=== PATIENT | female | born 1970 | race Caucasian/White ===

== ENCOUNTER 2019-06-18 11:50 | Inpatient (IN) | payer OTHER ==
--- NOTE | 2019-06-18 13:44 | HP ---
CIWA Score Nausea/Vomitin-No Nausea/No Vomiting Muscle Tremors: 4-Moderate,w/Arms Extend Anxiety: 0-No Anxiety, at Ease Agitation: 1-Slight > Activity Paroxysmal Sweats: 1-Minimal Palms Moist Orientation: 0-Oriented Tacttile Disturbances: 2-Mild Itch/Numbness/Burn Auditory Disturbances: 0-None Visual Disturbances: 0-None Headache: 4-Moderately Severe CIWA-Ar Total Score: 12 - Admission Criteria OASAS Guidelines: Admission for Medically Managed Detox: Requires at least one of the followin. CIWA greater than 12 2. Seizures within the past 24 hours 3. Delirium tremens within the past 24 hours 4. Hallucinations within the past 24 hours 5. Acute intervention needed for co occurring medical disorder 6. Acute intervention needed for co occurring psychiatric disorder 7. Severe withdrawal that cannot be handled at a lower level of care (continued vomiting, continued diarrhea, abnormal vital signs) requiring intravenous medication and/or fluids 8. Admitting History and Physical - Admission Chief Complaint: Ms. Marin presents requesting "detox from crack and alcohol". History of Present Illness: Ms. Marin presents requesting "detox from crack and alcohol". She is a 49 yo woman with a hx of alcohol, nicotine, crack and THC use. PMH: Asthma, HTN, OA, seizure last on Dilantin in , Hep C tx with [facility] while incarcerated. Non compliant with meds PSH: c section Psych: PTSD, bipolar. Stopped meds, Buspar and Abilify while in care home Substance use history Alcohol: one pint Vodka daily, began at the age of 18, last drink yesterday at 8a. 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 No black outs or withdrawal seizure. Longest abstinence [id number]. Was in detox [facility] 6 y ago. ACI 2019. Shakes and restless with abstinence. Nicotine: 1ppd since age 18y Crack/kalen: $300. per day, started age 19 y, last use 2 hours ago THC: one blunt per day, started age 20 y Just released from care home, April 14. Was abstinent of all drugs for 9 mos while in care home. History Source: Patient Limitations to Obtaining History: No Limitations - Past Medical History Cardiovascular: Yes: HTN Pulmonary: Yes: Asthma ...LMP: 04/12/14 Musculoskeletal: Yes: Osteoarthritis - Past Surgical History Past Surgical History: Yes: - Smoking History Smoking history: Current every day smoker Have you smoked in the past 12 months: Yes Aproximately how many cigarettes per day: 3 - Alcohol/Substance Use Hx Alcohol Use: Yes History of Substance Use: reports: Cocaine, Marijuana - Social History Usual Living Arrangement: Yes: Other (family has told her she can not live there anymore) Admission ROS S - HPI Allergies/Adverse Reactions: Allergies Allergy/AdvReac Type Severity Reaction Status Date / Time amitriptyline HCl AdvReac Verified 06/18/19 14:29 [From [facility]] Exam Limitations: No Limitations - Ebola screening Have you traveled outside of the country in the last 21 days: No Have you had contact with anyone from an Ebola affected area: No Have you been sick,other than usual withdrawal symptoms: No Do you have a fever: No - Review of Systems Constitutional: No Symptoms Reported EENT: reports: No Symptoms Reported Respiratory: reports: No Symptoms reported Cardiac: reports: No Symptoms Reported GI: reports: No Symptoms Reported : reports: No Symptoms Reported Musculoskeletal: reports: Joint Pain Integumentary: reports: No Symptoms Reported Neuro: reports: No Symptoms reported Endocrine: reports: No Symptoms Reported Hematology: reports: No Symptoms Reported Psychiatric: reports: Depressed Patient History - Patient Medical History Hx Anemia: No Hx Asthma: Yes Hx Chronic Obstructive Pulmonary Disease (COPD): No Hx Cancer: No Hx Cardiac Disorders: No Hx Congestive Heart Failure: No Hx Hypertension: No Hx Hypercholesterolemia: No Hx Pacemaker: No HX Cerebrovascular Accident: No Hx Seizures: Yes (1996 ALCOHOL RELATED) Hx Dementia: No Hx Diabetes: No Hx Gastrointestinal Disorders: No Hx Liver Disease: Yes Hx Genitourinary Disorders: No Hx Sexually Transmitted Disorders: No Hx Renal Disease (ESRD): No Hx Thyroid Disease: No Hx Human Immunodeficiency Virus (HIV): No Hx Hepatitis C: Yes (s/p Harvoni 2018) Hx Depression: No Hx Suicide Attempt: Yes ([facility]DRY LT. NUBIA 2008) Hx Bipolar Disorder: Yes (AND SCHIZOAFFECTIVE DISORDER ON ABILIFY AND CELEXA) Hx Schizophrenia: Yes - Patient Surgical History Past Surgical History: Yes Hx Neurologic Surgery: No Hx Cataract Extraction: No Hx Cardiac Surgery: No Hx Lung Surgery: No Hx Breast Surgery: No Hx Breast Biopsy: No Hx Abdominal Surgery: No Hx Appendectomy: No Hx Cholecystectomy: No Hx Genitourinary Surgery: No Hx Section: Yes (X2) Hx Orthopedic Surgery: No Anesthesia Reaction: No - PPD History Documented Results: Positive w/o proof Implanted On Prior R Admission?: No PPD to be Administered?: No - Reproductive History Last Menstrual Period: 08/11/17 Patient : No - Smoking Cessation Smoking history: Current every day smoker Have you smoked in the past 12 months: Yes Aproximately how many cigarettes per day: 20 Hx Chewing Tobacco Use: No Initiated information on smoking cessation: Yes 'Breaking Loose' booklet given: 06/18/19 - Substances abused Alcohol Substance route: Oral Frequency: Daily Amount used: 2 pints Vodka Age of first use: 18 Date of last use: 06/17/19 Crack Substance route: Smoking Amount used: $300 daily Age of first use: 19 Date of last use: 06/18/19 Marijuana/Hashish Substance route: Smoking Frequency: 1-2 times per week Amount used: one blunt Age of first use: 19 Date of last use: 06/14/19 Admission Physical Exam [facility] - Physical General Appearance: Yes: No Apparent Distress, Nourished, Obese HEENTM: Yes: Within Normal Limits Respiratory: Yes: Within Normal Limits Neck: Yes: Within Normal Limits Breast: Yes: Breast Exam Deferred Cardiology: Yes: Regular Rate, S1, S2 Abdominal: Yes: Normal Bowel Sounds, Non Tender Genitourinary: Yes: Other (deferred) Back: Yes: Normal Inspection Musculoskeletal: Yes: Other (joint pain knees, ankles) Neurological: Yes: Fully Oriented, Alert, Normal Response Integumentary: Yes: Within Normal Limits - Diagnostic (1) Alcohol dependence Current Visit: Yes Status: Acute (2) Tetrahydrocannabinol (THC) dependence Current Visit: Yes Status: Acute (3) Cocaine dependence Current Visit: Yes Status: Acute (4) Depression Current Visit: Yes Status: Acute Cleared for Admission [facility] - Detox or Rehab [facility] Level of Care: Medically Managed Breathalyzer - Breathalyzer Breathalyzer: 0 Urine Drug Screen - Results Urine drug screen results: KALEN-Cocaine, BZO-Benzodiazepines Inpatient Rehab Admission - Rehab Decision to Admit Inpatient rehab admission?: No
[2019-06-18] MEDS ORDERED: MAG HYDROX/AL HYDROX/SIMETH 30 ML UNIT-DOSE CUP PO PRN (13:57)
[2019-06-18] MEDS ORDERED: MAGNESIUM CITRATE 300 ML BOTTLE PO PRN (13:57)
[2019-06-18] MEDS ORDERED: hydrOXYzine PAMOATE 25 MG CAPSULE (FP) PO PRN (13:57)
[2019-06-18] MEDS ORDERED: IBUPROFEN 400 MG TABLET (FP) PO PRN (13:57)
[2019-06-18] MEDS ORDERED: BISMUTH SUBSALICYLATE 262 MG/15 ML BTL PO PRN (13:57)
[2019-06-18] MEDS ORDERED: chlordiazePOXIDE HCL 25 MG CAPSULE PO PRN (13:57)
[2019-06-18] MEDS ORDERED: ACETAMINOPHEN 325 MG TABLET (FP) PO PRN ×2 (13:57)
[2019-06-18] MEDS ORDERED: MAGNESIUM HYDROX 2400MG/30ML ORAL SUSPENSION 30 ML CUP PO PRN (13:57)
[2019-06-18] MEDS ORDERED: MENTHOL/PHENOL 1 EACH UD MM PRN (13:57)
[2019-06-18] MEDS ORDERED: ALBUTEROL SO4 HFA INHALER IH PRN (14:02)
[2019-06-18 14:34] VITALS: BMI 43.7
[2019-06-18 17:08] LABS: HEMATOCRIT 35.5 % (32.4-45.2); HEMOGLOBIN 11.4 GM/dL (10.7-15.3); MCH 26.5 pg (25.7-33.7); MCHC 32.2 g/dl (32.0-36.0); MEAN CELL VOLUME 82.4 fl (80-96); MEAN PLT VOLUME 9.3 fl (7.5-11.1); PLATELET COUNT 291 K/MM3 (134-434); RBC 4.31 M/mm3 (3.60-5.2); RDW 16.1 % (11.6-15.6); WHITE BLOOD COUNT 6.8 K/mm3 (4.0-10.0)
[2019-06-18 17:21] LABS: ALBUMIN 3.7 g/dl (3.4-5.0); BILIRUBIN,TOTAL 0.1 mg/dL (0.2-1); BLOOD UREA NITROGEN 20.4 mg/dL (7-18); CALCIUM 9.3 mg/dL (8.5-10.1); CREATININE 0.9 mg/dL (0.55-1.3); POTASSIUM 4.2 mmol/L (3.5-5.1); TOT PROT 7.9 g/dl (6.4-8.2)
[2019-06-18] MEDS: METHOCARBAMOL 500 MG TABLET PO PRN (17:47)
[2019-06-18] MEDS: chlordiazePOXIDE HCL 25 MG CAPSULE PO SCH ×2 (17:51→22:26)
[2019-06-18] MEDS: MELATONIN 5 MG TABLETS PO PRN (22:26)
[2019-06-18] MEDS: THIAMINE HCL 100 MG TABLET (FP) PO SCH (22:26)
[2019-06-19] MEDS: chlordiazePOXIDE HCL 25 MG CAPSULE PO SCH ×4 (05:47→22:40)
[2019-06-19] MEDS: METHOCARBAMOL 500 MG TABLET PO PRN (05:48)
[2019-06-19] MEDS: PRENATAL VITAMINS W/ FOLIC ACID TABLET (FP) PO SCH (10:26)
--- NOTE | 2019-06-19 12:14 | EKG ---
Test Reason : Blood Pressure : / mmHG Vent. Rate : 090 BPM Atrial Rate : 090 BPM P-R Int : 130 ms QRS Dur : 080 ms QT Int : 350 ms P-R-T Axes : 062 057 034 degrees QTc Int : 428 ms NORMAL SINUS RHYTHM MINIMAL VOLTAGE CRITERIA FOR LVH, MAY BE NORMAL VARIANT NO PREVIOUS ECGS AVAILABLE Confirmed by JONATHON KOCH MD ([id number]) on 06/19/2019 12:14:21 PM Referred By: Confirmed By:JONATHON OKCH MD
[2019-06-19] MEDS ORDERED: ALBUTEROL SO4 HFA INHALER IH PRN (12:55)
--- NOTE | 2019-06-19 13:00 | PN ---
S CIWA - CIWA Score Nausea/Vomitin-Mild Nausea/No Vomiting Muscle Tremors: 2 Anxiety: 2 Agitation: 1-Slight > Activity Paroxysmal Sweats: No Perspiration Orientation: 0-Oriented Tacttile Disturbances: 1-Very Mild Itch/Numbness Auditory Disturbances: 0-None Visual Disturbances: 0-None Headache: 2-Mild CIWA-Ar Total Score: 9 BHS Progress Note (SOAP) Subjective: alert,irritable,anxious,interrupted sleep,tremor Objective: 06/19/19 12:58 Vital Signs Temperature 96.9 F L 06/19/19 09:00 Pulse Rate 95 H 06/19/19 09:00 Respiratory Rate 20 06/19/19 09:00 Blood Pressure 111/68 06/19/19 09:00 O2 Sat by Pulse Oximetry (%) Assessment: 06/19/19 12:59 withdrawal symptom Plan: contiune detox librium regimen,bun elevated probably dehydration,encourage oral fluid
--- NOTE | 2019-06-19 16:24 | CONSULT ---
[facility] Psychiatric Consult - Data Date of interview: 06/19/19 Admission source: [facility] Identifying data: Revisit to [facility] and admission to [address] [place] [address] for this 49 y/o female self-referred for detoxification treatment. LISA issues : crack/ cocaine, cannabis, alcohol, nicotine. Patient is single, a mother of six, homeless, unemployed and supported on SSI benefits. Substance Abuse History: Discussed with the patient. Details in current [facility] report as follows : Smoking history: Current every day smoker. Have you smoked in the past 12 months: Yes. Aproximately how many cigarettes per day: 20. Hx Chewing Tobacco Use: No. Initiated information on smoking cessation: Yes. ' Breaking Loose' booklet given: 06/18/19. - Substances abused. Alcohol. Substance route: Oral. Frequency: Daily. Amount used: 2 pints Vodka. Age of first use: 18. Date of last use: 06/17/19. Crack. Substance route: Smoking. Amount used: $300 daily. Age of first use: 19. Date of last use: 10/30. Marijuana/Hashish. Substance route: Smoking. Frequency: 1-2 times per week. Amount used: one blunt. Age of first use: 19. Date of last use: 07/02 Medical History: Medical profile is remarkable for osteoarthritis, bronchial asthma, obesity, hepatitis C, hypertension, antecedent of withdrawal-related seizures and history of sections. Psychiatric History: Patient endorses history of two psychiatric hospitalizations ([facility] in 2008). Reportedly diagnosed with Schizoaffective Disorder and PTSD. Ms Marin [facility] at [facility]. She used to be followed at [facility] in the past. Has no recollection of names of past maintenance medications (records indicate abilify + citalopram). Patient reports one suicide attempt via self-mutilation (wrist-cutting in 2008). Physical/Sexual Abuse/Trauma History: Not discussed in this session. Patient declines. Additional Comment: Urine drug screen results: RAMONITA-Cocaine, BZO- Benzodiazepines. Noted. Mental Status Exam - Mental Status Exam Alert and Oriented to: Time, Place, Person Cognitive Function: Good Patient Appearance: Disheveled Mood: Withdrawn, Hopeful Affect: Mood Congruent, Constricted Patient Behavior: Fatigued, Appropriate, Cooperative Speech Pattern: Clear, Appropriate Voice Loudness: Normal Thought Process: Goal Oriented Thought Disorder: Not Present Hallucinations: Denies Suicidal Ideation: Denies Homicidal Ideation: Denies Insight/Judgement: Poor Appetite: Good Gait/Station: Normal Psychiatric Findings - Problem List ([place] 1, 2,3) (1) Alcohol use disorder Current Visit: Yes Status: Chronic (2) Cannabis dependence Current Visit: Yes Status: Chronic (3) Cocaine dependence Current Visit: Yes Status: Chronic (4) Nicotine dependence Current Visit: Yes Status: Chronic (5) Substance induced mood disorder Current Visit: Yes Status: Chronic (6) PTSD (post-traumatic stress disorder) Current Visit: Yes Status: Chronic Comment: As per self-report. (7) Schizoaffective disorder Current Visit: Yes Status: Chronic Comment: As per self-report. (8) Non-compliance Current Visit: Yes Status: Chronic - Initial Treatment Plan Initial Treatment Plan: Psychoeducation. Sleep hygiene. Detoxification. AA meetings. MAT services discussed with the patient : not receptive. Observation.
[2019-06-19] MEDS: MELATONIN 5 MG TABLETS PO PRN (22:40)
[2019-06-19] MEDS: THIAMINE HCL 100 MG TABLET (FP) PO SCH (22:40)
[2019-06-20] MEDS: chlordiazePOXIDE HCL 25 MG CAPSULE PO SCH ×4 (06:54→22:41)
[2019-06-20] MEDS: PRENATAL VITAMINS W/ FOLIC ACID TABLET (FP) PO SCH (10:41)
--- NOTE | 2019-06-20 14:09 | PN ---
S CIWA - CIWA Score Nausea/Vomitin-No Nausea/No Vomiting Muscle Tremors: None Anxiety: 3 Agitation: 0-Normal Activity Paroxysmal Sweats: 3 Orientation: 0-Oriented Tacttile Disturbances: 0-None Auditory Disturbances: 0-None Visual Disturbances: 0-None Headache: 2-Mild CIWA-Ar Total Score: 8 BHS Progress Note (SOAP) Subjective: c/o anxiety, sweats, and headache. Objective: 06/20/19 14:09 Vital Signs 06/20/19 06/20/19 06/20/19 06:47 09:00 12:58 Temperature 97.9 F 97.3 F L 96.9 F L Pulse Rate 82 92 H 64 Respiratory 18 20 16 Rate Blood Pressure 115/65 150/88 148/86 Laboratory Last Values WBC 6.8 K/mm3 (4.0-10.0) 06/18/19 14:50 RBC 4.31 M/mm3 (3.60-5.2) 06/18/19 14:50 Hgb 11.4 GM/dL (10.7-15.3) 06/18/19 14:50 Hct 35.5 % (32.4-45.2) 06/18/19 14:50 MCV 82.4 fl (80-96) 06/18/19 14:50 MCH 26.5 pg (25.7-33.7) 06/18/19 14:50 MCHC 32.2 g/dl (32.0-36.0) 06/18/19 14:50 RDW 16.1 % (11.6-15.6) H 06/18/19 14:50 Plt Count 291 K/MM3 (134-434) 06/18/19 14:50 MPV 9.3 fl (7.5-11.1) 06/18/19 14:50 Sodium 141 mmol/L (136-145) 06/18/19 14:50 Potassium 4.2 mmol/L (3.5-5.1) 06/18/19 14:50 Chloride 108 mmol/L (98-107) H 06/18/19 14:50 Carbon Dioxide 26 mmol/L (21-32) 06/18/19 14:50 Anion Gap 8 MMOL/L (8-16) 06/18/19 14:50 BUN 20.4 mg/dL (7-18) H 06/18/19 14:50 Creatinine 0.9 mg/dL (0.55-1.3) 06/18/19 14:50 Est GFR (CKD-EPI)AfAm 87.02 06/18/19 14:50 Est GFR (CKD-EPI)NonAf 75.08 06/18/19 14:50 Random Glucose 97 mg/dL (74-106) 06/18/19 14:50 Calcium 9.3 mg/dL (8.5-10.1) 06/18/19 14:50 Total Bilirubin 0.1 mg/dL (0.2-1) L 06/18/19 14:50 AST 17 U/L (15-37) 06/18/19 14:50 ALT 19 U/L (13-61) 06/18/19 14:50 Alkaline Phosphatase 122 U/L (45-117) H 06/18/19 14:50 Total Protein 7.9 g/dl (6.4-8.2) 06/18/19 14:50 Albumin 3.7 g/dl (3.4-5.0) 06/18/19 14:50 RPR Titer Nonreactive (NONREACTIVE) 06/18/19 14:50 Labs noted. Assessment: 06/20/19 14:10 AOX3, in no respiratory distress. Full ROM, ambulating in the unit. Withdrawal symptoms. Plan: continue detox.
[2019-06-20] MEDS: MELATONIN 5 MG TABLETS PO PRN (22:41)
[2019-06-20] MEDS: METHOCARBAMOL 500 MG TABLET PO PRN (22:41)
[2019-06-20] MEDS: THIAMINE HCL 100 MG TABLET (FP) PO SCH (22:41)
[2019-06-21] MEDS ORDERED: chlordiazePOXIDE HCL 10 MG CAPSULE PO PRN
[2019-06-21] MEDS: chlordiazePOXIDE HCL 10 MG CAPSULE PO SCH ×4 (06:58→22:27)
[2019-06-21] MEDS: PRENATAL VITAMINS W/ FOLIC ACID TABLET (FP) PO SCH (10:28)
--- NOTE | 2019-06-21 12:40 | PN ---
S CIWA - CIWA Score Nausea/Vomitin-No Nausea/No Vomiting Muscle Tremors: 2 Anxiety: 2 Agitation: 0-Normal Activity Paroxysmal Sweats: 2 Orientation: 0-Oriented Tacttile Disturbances: 0-None Auditory Disturbances: 0-None Visual Disturbances: 1-Very Mild Sensitivity Headache: 0-None Present CIWA-Ar Total Score: 7 S Progress Note (SOAP) Subjective: 49 years old female admitted on 06/18/19 for alcohol withdrawal sx management treating with librium detox regiment feeling ok today but tired after eating breakfast and lunch prefers resting in bed Objective: 06/21/19 12:50 Vital Signs Temperature 97.8 F 06/21/19 09:13 Pulse Rate 100 H 06/21/19 09:13 Respiratory Rate 18 06/21/19 09:13 Blood Pressure 107/62 06/21/19 09:13 O2 Sat by Pulse Oximetry (%) Laboratory Last Values WBC 6.8 K/mm3 (4.0-10.0) 06/18/19 14:50 RBC 4.31 M/mm3 (3.60-5.2) 06/18/19 14:50 Hgb 11.4 GM/dL (10.7-15.3) 06/18/19 14:50 Hct 35.5 % (32.4-45.2) 06/18/19 14:50 MCV 82.4 fl (80-96) 06/18/19 14:50 MCH 26.5 pg (25.7-33.7) 06/18/19 14:50 MCHC 32.2 g/dl (32.0-36.0) 06/18/19 14:50 RDW 16.1 % (11.6-15.6) H 06/18/19 14:50 Plt Count 291 K/MM3 (134-434) 06/18/19 14:50 MPV 9.3 fl (7.5-11.1) 06/18/19 14:50 Sodium 141 mmol/L (136-145) 06/18/19 14:50 Potassium 4.2 mmol/L (3.5-5.1) 06/18/19 14:50 Chloride 108 mmol/L (98-107) H 06/18/19 14:50 Carbon Dioxide 26 mmol/L (21-32) 06/18/19 14:50 Anion Gap 8 MMOL/L (8-16) 06/18/19 14:50 BUN 20.4 mg/dL (7-18) H 06/18/19 14:50 Creatinine 0.9 mg/dL (0.55-1.3) 06/18/19 14:50 Est GFR (CKD-EPI)AfAm 87.02 06/18/19 14:50 Est GFR (CKD-EPI)NonAf 75.08 06/18/19 14:50 Random Glucose 97 mg/dL (74-106) 06/18/19 14:50 Calcium 9.3 mg/dL (8.5-10.1) 06/18/19 14:50 Total Bilirubin 0.1 mg/dL (0.2-1) L 06/18/19 14:50 AST 17 U/L (15-37) 06/18/19 14:50 ALT 19 U/L (13-61) 06/18/19 14:50 Alkaline Phosphatase 122 U/L (45-117) H 06/18/19 14:50 Total Protein 7.9 g/dl (6.4-8.2) 06/18/19 14:50 Albumin 3.7 g/dl (3.4-5.0) 06/18/19 14:50 RPR Titer Nonreactive (NONREACTIVE) 06/18/19 14:50 lab noted Assessment: 06/21/19 12:50 alcohol withdrawal Plan: librium regiment
[2019-06-21] MEDS: THIAMINE HCL 100 MG TABLET (FP) PO SCH (22:27)
[2019-06-21] MEDS: MELATONIN 5 MG TABLETS PO PRN (22:27)
[2019-06-21] MEDS: METHOCARBAMOL 500 MG TABLET PO PRN (22:28)
[2019-06-22] MEDS: chlordiazePOXIDE HCL 10 MG CAPSULE PO SCH ×2 (06:47→17:33)
[2019-06-22] MEDS: METHOCARBAMOL 500 MG TABLET PO PRN ×2 (06:47→22:25)
[2019-06-22] MEDS: PRENATAL VITAMINS W/ FOLIC ACID TABLET (FP) PO SCH (10:38)
--- NOTE | 2019-06-22 13:01 | PN ---
[facility] CIWA - CIWA Score Nausea/Vomitin-No Nausea/No Vomiting Muscle Tremors: 1-None Visible, but [place] Anxiety: 1-Mildly Anxious Agitation: 1-Slight > Activity Paroxysmal Sweats: 1-Minimal Palms Moist Orientation: 0-Oriented Tacttile Disturbances: 0-None Auditory Disturbances: 0-None Visual Disturbances: 0-None Headache: 0-None Present CIWA-Ar Total Score: 4 BHS Progress Note (SOAP) Subjective: 49 years old female admitted on 06/18/19 for alcohol withdrawal sx management treating with librium detox regiment feeling better today less tremor slept through the night Objective: 06/22/19 13:01 Vital Signs Temperature 97.4 F L 06/22/19 08:42 Pulse Rate 90 06/22/19 08:42 Respiratory Rate 20 06/22/19 08:42 Blood Pressure 121/60 06/22/19 08:42 O2 Sat by Pulse Oximetry (%) Laboratory Last Values WBC 6.8 K/mm3 (4.0-10.0) 06/18/19 14:50 RBC 4.31 M/mm3 (3.60-5.2) 06/18/19 14:50 Hgb 11.4 GM/dL (10.7-15.3) 06/18/19 14:50 Hct 35.5 % (32.4-45.2) 06/18/19 14:50 MCV 82.4 fl (80-96) 06/18/19 14:50 MCH 26.5 pg (25.7-33.7) 06/18/19 14:50 MCHC 32.2 g/dl (32.0-36.0) 06/18/19 14:50 RDW 16.1 % (11.6-15.6) H 06/18/19 14:50 Plt Count 291 K/MM3 (134-434) 06/18/19 14:50 MPV 9.3 fl (7.5-11.1) 06/18/19 14:50 Sodium 141 mmol/L (136-145) 06/18/19 14:50 Potassium 4.2 mmol/L (3.5-5.1) 06/18/19 14:50 Chloride 108 mmol/L (98-107) H 06/18/19 14:50 Carbon Dioxide 26 mmol/L (21-32) 06/18/19 14:50 Anion Gap 8 MMOL/L (8-16) 06/18/19 14:50 BUN 20.4 mg/dL (7-18) H 06/18/19 14:50 Creatinine 0.9 mg/dL (0.55-1.3) 06/18/19 14:50 Est GFR (CKD-EPI)AfAm 87.02 06/18/19 14:50 Est GFR (CKD-EPI)NonAf 75.08 06/18/19 14:50 Random Glucose 97 mg/dL (74-106) 06/18/19 14:50 Calcium 9.3 mg/dL (8.5-10.1) 06/18/19 14:50 Total Bilirubin 0.1 mg/dL (0.2-1) L 06/18/19 14:50 AST 17 U/L (15-37) 06/18/19 14:50 ALT 19 U/L (13-61) 06/18/19 14:50 Alkaline Phosphatase 122 U/L (45-117) H 06/18/19 14:50 Total Protein 7.9 g/dl (6.4-8.2) 06/18/19 14:50 Albumin 3.7 g/dl (3.4-5.0) 06/18/19 14:50 RPR Titer Nonreactive (NONREACTIVE) 06/18/19 14:50 lab noted Assessment: 06/22/19 13:01 alcohol withdrawal Plan: librium regiment
[2019-06-22] MEDS: THIAMINE HCL 100 MG TABLET (FP) PO SCH (22:23)
[2019-06-22] MEDS: MELATONIN 5 MG TABLETS PO PRN (22:24)
[2019-06-23] MEDS ORDERED: chlordiazePOXIDE HCL 10 MG CAPSULE PO ONE (05:00)
[2019-06-23] MEDS: PRENATAL VITAMINS W/ FOLIC ACID TABLET (FP) PO SCH (09:45)
--- NOTE | 2019-06-23 12:39 | DS ---
[facility] Detox Discharge Summary Admission Date: 06/18/19 Discharge Date: 06/23/19 - History Present History: Alcohol Dependence Additional Comments: 49 years old female admitted on 06/18/19 for alcohol withdrawal sx management treated with librium detox regiment Mrs Marin has completed the librium regiment and tolerated well seen by psychiatrist no medical intervention at this time patient was doing well throughout the detox stay alert oriented x 3 cardiac s1s2 regular rate rhythm ekg indicated left ventricular hypertrophy patient denies chest pain no dizziness no shortness of breath respiratory clear lungs bilaterally on auscultation skin warm and dry Pertinent Past History: time for discharge 33 minutes - Physical Exam Results Vital Signs: Vital Signs Temperature 97.5 F L 06/23/19 08:50 Pulse Rate 69 06/23/19 08:50 Respiratory Rate 16 06/23/19 08:50 Blood Pressure 128/77 06/23/19 08:50 O2 Sat by Pulse Oximetry (%) Pertinent Admission Physical Exam Findings: alcohol withdrawal Laboratory Last Values WBC 6.8 K/mm3 (4.0-10.0) 06/18/19 14:50 RBC 4.31 M/mm3 (3.60-5.2) 06/18/19 14:50 Hgb 11.4 GM/dL (10.7-15.3) 06/18/19 14:50 Hct 35.5 % (32.4-45.2) 06/18/19 14:50 MCV 82.4 fl (80-96) 06/18/19 14:50 MCH 26.5 pg (25.7-33.7) 06/18/19 14:50 MCHC 32.2 g/dl (32.0-36.0) 06/18/19 14:50 RDW 16.1 % (11.6-15.6) H 06/18/19 14:50 Plt Count 291 K/MM3 (134-434) 06/18/19 14:50 MPV 9.3 fl (7.5-11.1) 06/18/19 14:50 Sodium 141 mmol/L (136-145) 06/18/19 14:50 Potassium 4.2 mmol/L (3.5-5.1) 06/18/19 14:50 Chloride 108 mmol/L (98-107) H 06/18/19 14:50 Carbon Dioxide 26 mmol/L (21-32) 06/18/19 14:50 Anion Gap 8 MMOL/L (8-16) 06/18/19 14:50 BUN 20.4 mg/dL (7-18) H 06/18/19 14:50 Creatinine 0.9 mg/dL (0.55-1.3) 06/18/19 14:50 Est GFR (CKD-EPI)AfAm 87.02 06/18/19 14:50 Est GFR (CKD-EPI)NonAf 75.08 06/18/19 14:50 Random Glucose 97 mg/dL (74-106) 06/18/19 14:50 Calcium 9.3 mg/dL (8.5-10.1) 06/18/19 14:50 Total Bilirubin 0.1 mg/dL (0.2-1) L 06/18/19 14:50 AST 17 U/L (15-37) 06/18/19 14:50 ALT 19 U/L (13-61) 06/18/19 14:50 Alkaline Phosphatase 122 U/L (45-117) H 06/18/19 14:50 Total Protein 7.9 g/dl (6.4-8.2) 06/18/19 14:50 Albumin 3.7 g/dl (3.4-5.0) 06/18/19 14:50 RPR Titer Nonreactive (NONREACTIVE) 06/18/19 14:50 lab noted - Treatment Hospital Course: Detox Protocol Followed, Detoxed Safely, Responded well, Discharged Condition Good, Rehab Referral Accepted Patient has Accepted [facility] Referral [facility] - Medication Discharge Medications: Ambulatory Orders Albuterol Sulfate Inhaler - [Ventolin HFA Inhaler -] 1 - 2 inh PO QID PRN #1 inh 05/09/14 - Diagnosis (1) Alcohol dependence, uncomplicated Current Visit: Yes Status: Acute (2) Nicotine dependence Current Visit: Yes Status: Acute Qualifiers: Nicotine product type: cigarettes Substance use status: in withdrawal Qualified Code(s): F17.213 - Nicotine dependence, cigarettes, with withdrawal (3) Substance induced mood disorder Current Visit: Yes Status: Suspected (4) Asthma Current Visit: Yes Status: Chronic Qualifiers: Asthma severity: mild Asthma persistence: intermittent Asthma complication type: with status asthmaticus Qualified Code(s): J45.22 - Mild intermittent asthma with status asthmaticus (5) Hepatitis C Current Visit: Yes Status: Chronic Qualifiers: Viral hepatitis chronicity: carrier Qualified Code(s): B18.2 - Chronic viral hepatitis C (6) Obesities, morbid Current Visit: Yes Status: Chronic - AMA Did Patient Leave Against Medical Advice: No CIWA Score - CIWA Score Nausea/Vomitin-No Nausea/No Vomiting Muscle Tremors: 1-None Visible, but [place] Anxiety: 1-Mildly Anxious Agitation: 0-Normal Activity Paroxysmal Sweats: No Perspiration Orientation: 0-Oriented Tacttile Disturbances: 0-None Auditory Disturbances: 0-None Visual Disturbances: 0-None Headache: 0-None Present CIWA-Ar Total Score: 2
[2019-06-23 17:50] VITALS: BP 125/63; PULSE 103; TEMP 100
== END 2019-06-23 18:00 | disposition other institution (70) | DRG 774 ==
LOC: YASAS 11:50 → Y3N 14:46
PROVIDERS: ADMIT Allergy & Immunology; ATTEND Allergy & Immunology
PROC: HZ2ZZZZ Detoxification Services for Substance Abuse Treatment (ICD-10-PCS; principal; 2019-06-18)
DX: F10.230 Alcohol dependence with withdrawal, uncomplicated (principal); F14.20 Cocaine dependence, uncomplicated; F12.20 Cannabis dependence, uncomplicated; F17.213 Nicotine dependence, cigarettes, with withdrawal; F19.24 Other psychoactive substance dependence with psychoactive substance-induced mood disorder; F43.10 Post-traumatic stress disorder, unspecified; F25.9 Schizoaffective disorder, unspecified; I10 Essential (primary) hypertension; J45.22 Mild intermittent asthma with status asthmaticus; B18.2 Chronic viral hepatitis C; M19.90 Unspecified osteoarthritis, unspecified site; E66.01 Morbid (severe) obesity due to excess calories; Z68.41 Body mass index [BMI] 40.0-44.9, adult; Z88.8 Allergy status to other drugs, medicaments and biological substances; Z91.14 Patient's other noncompliance with medication regimen; Z86.69 Personal history of other diseases of the nervous system and sense organs; Z91.5 Personal history of self-harm
CPT/HCPCS: 36415; 71046-TC-FY; 80053; 85027; 86593; 93005; 93010

== ENCOUNTER 2019-06-23 13:46 | Inpatient (IN) | payer OTHER ==
--- NOTE | 2019-06-23 12:36 | HP ---
[facility] Rehab Assess/Revision - Admission History Admitted to Rehab from: [facility] Date of Admission to Rehab: 06/23/19 - Findings Detox History & Physical reviewed: Yes Concur with findings: Yes Comments/Additional Findings: transferred from detox to rehab admission as per protocol Inpatient Rehab Admission - Rehab Decision to Admit Inpatient rehab admission?: Yes - Initial Determination Are CD services needed?: Yes Free of communicable disease: Yes Not in need of hospitalization: Yes - Rehab Admission Criteria Previous failed treatment: Yes Poor recovery environment: Yes Comorbidities: Yes Lacks judgement: Yes Patient is meeting Inpatient Rehab admission criteria:: Yes
[~2019-06-23 13:46] MED LIST: ACETAMINOPHEN 325 MG TABLET (FP) PO PRN; ALBUTEROL SO4 HFA INHALER IH PRN; IBUPROFEN 400 MG TABLET (FP) PO PRN; LOPERAMIDE HCL 2 MG CAPSULE PO PRN; MAG HYDROX/AL HYDROX/SIMETH 30 ML UNIT-DOSE CUP PO PRN; MAGNESIUM CITRATE 300 ML BOTTLE PO PRN; MAGNESIUM HYDROX 2400MG/30ML ORAL SUSPENSION 30 ML CUP PO PRN; MENTHOL/PHENOL 1 EACH UD MM PRN; P-EPHED 60MG/TRIPROLIDI 2.5MG TABLET PO PRN; guaiFENesin 200 MG/10 ML 10 ML UNIT-DOSE CUPS PO PRN
[2019-06-23] MEDS: THIAMINE HCL 100 MG TABLET (FP) PO SCH (21:34)
[2019-06-23] MEDS: MELATONIN 5 MG TABLETS PO PRN (21:35)
[2019-06-24] MEDS: METHOCARBAMOL 500 MG TABLET PO SCH ×4 (09:24→21:30)
[2019-06-24] MEDS: PRENATAL VITAMINS W/ FOLIC ACID TABLET (FP) PO SCH (09:24)
--- NOTE | 2019-06-24 14:34 | PN ---
[facility] Progress Note Note: Pt is a 49 y/o female with a hx of LISA-alcohol,crack,marijuana admitted to rehab from [address] [place] [address] on 06/23/19. Pt reports she has no primary care provider and goes to [facility] ER for care when needed. Pt is currently c/ o bone pain and fatigue and reports "whats gonna take care of it is opiates" stating motrin is not going to do anything. PMHx:Asthma,HTN,Osteoarthritis, Seizure hx-last episode in the , Hep c(treated in care home with [facility]). Psych Hx:bipolar d/o, PTSD. Vital Signs - 24 hr 06/23/19 06/24/19 06/24/19 18:00 00:36 06:47 Temperature 97.3 F L 97.7 F Pulse Rate 97 H 64 Respiratory 18 18 18 Rate Blood Pressure 116/64 157/70 Alert o x 3 oob ambulating with steady gait extremities/skin:no edema,+++fatty adipose knee;skin Intact. A/P LISA s/p detox Morbid Obesity Maintain safety increase po fluids Robaxin as directed increase motrin 600 mg po Q6h prn for pain
[2019-06-24] MEDS: THIAMINE HCL 100 MG TABLET (FP) PO SCH (21:30)
[2019-06-25 07:13] VITALS: TEMP 97.8
[2019-06-25] MEDS: PRENATAL VITAMINS W/ FOLIC ACID TABLET (FP) PO SCH (10:31)
[2019-06-25] MEDS: METHOCARBAMOL 500 MG TABLET PO SCH ×4 (10:31→21:53)
[2019-06-25] MEDS: MELATONIN 5 MG TABLETS PO PRN (21:53)
[2019-06-25] MEDS: THIAMINE HCL 100 MG TABLET (FP) PO SCH (21:53)
[2019-06-26 07:14] VITALS: BP 134/89; PULSE 81
[2019-06-26] MEDS: METHOCARBAMOL 500 MG TABLET PO SCH ×2 (09:20→13:01)
[2019-06-26] MEDS: PRENATAL VITAMINS W/ FOLIC ACID TABLET (FP) PO SCH (09:20)
--- NOTE | 2019-06-26 12:55 | PN ---
[facility] Progress Note Note: Patient continues to c/o body aches, LBP and bone pain stating " I thing all the drugs ate up my bones". She is aware she cannot receive opiods for pain management and is currently on Robaxin 500mg po qid. Vital Signs Temperature 97.8 F 06/26/19 06:43 Pulse Rate 81 06/26/19 06:43 Respiratory Rate 18 06/26/19 06:43 Blood Pressure 134/89 06/26/19 06:43 O2 Sat by Pulse Oximetry (%) ROS: + LBP, Bone pain, dull ache, 11/19. PE: alert and oriented x 3 skin warm and dry +perrla, eoms intact bl gi soft, obese, nd ext full rom, amb ad augustina independently A/P: Chronic LBP/Bone pain Will continue robaxin start lidocaine patch to lower back area daily monitor clinically
--- NOTE | 2019-06-26 15:03 | DS ---
[facility] Rehab Discharge Summary - [facility] Rehab Discharge Summary Admission Date: 06/23/19 Discharge Date: 06/26/19 - History Present History: Alcohol dependence, Cannabis dependence, Cocaine dependence - Discharge Physical Exam Vital Signs: Vital Signs Temperature 97.8 F 06/26/19 06:43 Pulse Rate 81 06/26/19 06:43 Respiratory Rate 18 06/26/19 06:43 Blood Pressure 134/89 06/26/19 06:43 O2 Sat by Pulse Oximetry (%) ROS: denies chest pain, sob, dizziness, headache. + c/o joint/bone/LBP-chronic PE: alert and oriented x 3 in nad skin warm and dry ext full rom, amb with cane denies si/hi A/P: alcohol/kalen/thc dependence patient signed out AMA from rehab - Medication Discharge Medications: Ambulatory Orders Albuterol Sulfate Inhaler - [Ventolin HFA Inhaler -] 1 - 2 inh PO QID PRN #1 inh 05/09/14 - Medication-Assisted Treatment (MAT) Medication-Assisted Treatment (MAT): No - Discharge Instructions Diet, activity, other medical instructions: Diet: reg as tolerated Activity: as tolerated Other medical instructions: follow up with PCP as recommended - Follow-up Referral Minutes to complete discharge: 35 - AMA Did Patient Leave Against Medical Advice: Yes Additional Comments: Patient requested to sign out AMA from rehab treatment stating " I have to go see a pain specialist today at [facility]". Patient's pain was treated with robaxin and lidocaine patch with no effect. Patient encouraged by staff to complete treatment and explained risk factors of reoccurrence and possible overdose with signing out AMA. Patient refused to stay in treatment and signed out AMA. She left unit with tech, medically stable and denies SI/HI.
== END 2019-06-26 14:25 | disposition left against medical advice (07) | DRG 770 ==
LOC: YASAS 13:46 → Y3E 13:47
PROVIDERS: ADMIT Allergy & Immunology; ATTEND Allergy & Immunology
PROC: HZ42ZZZ Group Counseling for Substance Abuse Treatment, Cognitive-Behavioral (ICD-10-PCS; principal; 2019-06-23)
DX: F10.20 Alcohol dependence, uncomplicated (principal); F14.20 Cocaine dependence, uncomplicated; F12.20 Cannabis dependence, uncomplicated; F17.210 Nicotine dependence, cigarettes, uncomplicated; F31.9 Bipolar disorder, unspecified; F43.10 Post-traumatic stress disorder, unspecified; I10 Essential (primary) hypertension; J45.909 Unspecified asthma, uncomplicated; M19.90 Unspecified osteoarthritis, unspecified site; M54.5 Low back pain; E66.01 Morbid (severe) obesity due to excess calories; Z68.42 Body mass index [BMI] 45.0-49.9, adult; Z86.19 Personal history of other infectious and parasitic diseases; Z86.69 Personal history of other diseases of the nervous system and sense organs; Z88.8 Allergy status to other drugs, medicaments and biological substances